=== PATIENT | male | born 1945 | race Caucasian/White ===

== ENCOUNTER 2017-04-22 09:20 | Outpatient (CLI) | payer MEDICARE ==
[2017-04-22 10:44] LABS: #Eosinphils 0.1 thou/uL (0.0-0.7); #Lymphocytes 1.8 thou/uL (1.20-3.40); #Monocytes 0.4 thou/uL (0.11-0.59); #Neutrophils 3.2 thou/uL (1.40-6.50); %Basophils 0.9 % (0.0-1.0); %Eosinophils 1.4 % (0.0-10.0); %Lymphocytes 33.1 % (21.0-51.0); %Monocytes 7.6 % (0.0-10.0); Hemoglobin 13.4 g/dL (14.0-18.0); Mean Corpuscular HGB CONC 34.3 g/dL (32.0-36.0); Mean Corpuscular Hemoglobin 30.4 pg (27.0-31.0); Mean Corpuscular Volume 88.6 fl (80.0-94.0); Mean Platelet Volume 5.9 fL (7.4-10.4); Platelet Count 321 thou/uL (130-400); RBC Distribution Width 11.9 % (11.5-14.5); Red Blood Cell (RBC) Count 4.39 mill/uL (4.70-6.10); White Blood Cell (WBC) Count 5.5 thou/uL (4.8-10.8)
[2017-04-22 11:03] LABS: Anion Gap 9 mmol/L (10-20); BUN (Urea Nitrogen) 15 mg/dL (8.4-25.7); Calc. Creatinine Clearance 0 mL/min (70-130); Carbon Dioxide 28 mmol/L (23-31); Chloride 107 mmol/L (98-107); Estimated GFR-MDRD 78; Glucose 98 mg/dL (80-115); Potassium 4.4 mmol/L (3.5-5.1); Sodium 140 mmol/L (136-145)
--- NOTE | 2017-04-22 19:05 | EKG ---
Test Reason : Blood Pressure : / mmHG Vent. Rate : 050 BPM Atrial Rate : 050 BPM P-R Int : 132 ms QRS Dur : 092 ms QT Int : 478 ms P-R-T Axes : 033 060 033 degrees QTc Int : 435 ms Sinus bradycardia Minimal voltage criteria for LVH, may be normal variant Borderline ECG When compared with ECG of 10-JAN-2010 17:33, No significant change was found Confirmed by DR. Cecil ELLER ([id number]) on 04/22/2017 7:05:23 PM Referred By: MICHAEL Confirmed By:DR. Cecil ELLER
== END 2017-04-22 09:21 | disposition home or self-care (01) ==
LOC: LABBT 09:20
PROVIDERS: ATTEND Surgery
DX: Z01.818 Encounter for other preprocedural examination (principal); K40.20 Bilateral inguinal hernia, without obstruction or gangrene, not specified as recurrent
CPT/HCPCS: 80048; 85025; 93005; 93010

== ENCOUNTER 2017-04-27 11:38 | Day surgery (SDC) | payer MEDICARE ==
[2017-04-27] MEDS ORDERED: CEFAZOLIN/Water 2 GM/20 ML SYRINGE ONE (12:44)
[2017-04-27] MEDS ORDERED: Bupivacaine/Epinephrine 0.25% 30 ML VIAL ONE (15:39)
[2017-04-27] MEDS ORDERED: HYDROmorphone 0.5 MG/0.5 ML SYRINGE ONE (15:40)
[2017-04-27] MEDS ORDERED: Fentanyl 250 MCG/5 ML VIAL ONE (15:40)
[2017-04-27] MEDS ORDERED: Propofol 200 MG/20 ML VIAL ONE (17:17)
[2017-04-27] MEDS ORDERED: Ketorolac Tromethamine 30 MG/ML VIAL ONE (17:17)
[2017-04-27] MEDS ORDERED: Dexamethasone 20 MG/5 ML VIAL ONE (17:17)
[2017-04-27] MEDS ORDERED: Glycopyrrolate 0.2 MG/ML 5 ML SYRINGE ONE (17:17)
[2017-04-27] MEDS ORDERED: Ondansetron HCl/PF 4 MG/2 ML Vial ONE (17:17)
[2017-04-27] MEDS ORDERED: Lidocaine 1% PF 5 ML VIAL ONE (17:17)
[2017-04-27] MEDS ORDERED: Meperidine HCl/PF 25 MG/ML VIAL ONE (18:03)
--- NOTE | 2017-04-27 20:43 | OP ---
DATE OF PROCEDURE: 04/27/2017. PREOPERATIVE DIAGNOSIS: Bilateral inguinal hernia. POSTOPERATIVE DIAGNOSIS: Bilateral inguinal hernia. PROCEDURE: Bilateral inguinal hernia repair with mesh. SURGEON: Arun Núñez MD ANESTHESIA: General. ESTIMATED BLOOD LOSS: Minimal. COMPLICATIONS: None. SPECIMENS: None. FINDINGS: Bilateral inguinal hernia. TECHNIQUE: The patient was taken to the operating room, placed supine on the table. After general a nesthetic was obtained, the Oneill was placed. The abdomen was shaved, prepped, and draped in a steri le fashion. Curved incision was made above the umbilicus. Cautery was used to dissect down to and s core the fascia. Abdominal cavity was entered bluntly using a Stephany clamp followed by a 12-mm trocar . High-flow pneumoperitoneum was obtained. The patient was placed in Trendelenburg position. Right and left abdominal 8-mm robot ports were placed. All ports were docked to the robot. Surgeon goes to the console. The peritoneum was taken down in the bilateral groin and the preperitoneal space fu lly dissected to the pubic tubercle medially, to the anterior iliac crest laterally. Iliopectineal l ine was fully exposed. The bilateral indirect inguinal hernias were dissected out of the indirect de fect and high up onto the peritoneum. There were no direct defects. On the left, the ProGrip mesh w as brought in and its medial labeled aspect was placed over the pubic tubercle. The mesh was unfolde d to completely cover the direct, indirect, and femoral components. On the right side, a 3DMax large mesh was brought in and its end-labeled medial aspect was placed over the pubic tubercle. The mesh laid out to cover the direct, indirect, and the femoral areas. On the right side, the mesh was sewn to the pubic tubercle medially and to the posterior fascia laterally using 2-0 Vicryl. The bilateral peritoneum was reapproximated using running Stratafix suture. All port sites were infiltrated using local anesthetic. All ports were removed under camera visualization. Pneumoperitoneum was let down . PDS was used to close the fascial defect above the umbilicus. All incisions were irrigated and cl osed using 4-0 Monocryl and Dermabond. The patient was en route to recovery in stable condition. Al l sponge counts, needle counts, lap counts were correct.
== END 2017-04-27 19:15 | disposition home or self-care (01) ==
LOC: SDC 11:38
PROVIDERS: ATTEND Surgery
PROC: 0YUA4JZ Supplement Bilateral Inguinal Region with Synthetic Substitute, Percutaneous Endoscopic Approach (ICD-10-PCS; principal; 2017-04-27)
DX: K40.20 Bilateral inguinal hernia, without obstruction or gangrene, not specified as recurrent (principal); I10 Essential (primary) hypertension; Z79.82 Long term (current) use of aspirin; Z79.899 Other long term (current) drug therapy; Z88.5 Allergy status to narcotic agent; Z98.890 Other specified postprocedural states; Z87.891 Personal history of nicotine dependence
CPT/HCPCS: C1781; J1100; J1170; J1885; J2001; J2175; J2405; J2704; J3010

== ENCOUNTER 2017-09-11 12:21 | Outpatient (CLI) | payer MEDICARE ==
--- NOTE | 2017-09-11 14:00 | RAD ---
LEFT FOOT 3 VIEWS: Date: 09/11/17 HISTORY: M79.672, burning sensation. COMPARISON: None. FINDINGS: No fracture. No malalignment. Low grade atherosclerotic plaque. No acute soft tissue abnormality. IMPRESSION: No acute abnormality. POS: MAGDALENA
--- NOTE | 2017-09-11 14:02 | RAD ---
LEFT ANKLE 3 VIEWS: Date: 09/11/17 HISTORY: M25.472, pain. COMPARISON: None. FINDINGS: No acute fracture or malalignment. Moderate vascular calcifications. There is some periosteal ossification of the posterior malleolus. IMPRESSION: No acute fracture or malalignment. POS: MAGDALENA
== END 2017-09-11 12:22 | disposition home or self-care (01) ==
LOC: SCSRAD 12:21
PROVIDERS: ATTEND Family Medicine
DX: M79.89 Other specified soft tissue disorders (principal); M79.672 Pain in left foot

== ENCOUNTER 2017-10-20 10:22 | Outpatient (CLI) | payer MEDICARE | END 2017-10-20 10:23 | disposition home or self-care (01) | LOC: BICMRI 10:22 | PROVIDERS: ATTEND Specialist | DX: H91.8X1 Other specified hearing loss, right ear (principal); G93.89 Other specified disorders of brain | CPT/HCPCS: 70553; 82565 ==

== ENCOUNTER 2018-09-15 11:06 | Day surgery (SDC) | payer MEDICARE ==
--- NOTE | 2018-09-14 10:38 | HP ---
HISTORY OF PRESENT ILLNESS: This is a 72-year-old male, who comes for a colonoscopy for colon cancer screening. The patient has no specific GI symptoms. His bowel movements are regular. No history of hematochezia. ALLERGIES: NONE. MEDICAL ILLNESS: 1. Hypertension. 2. . 3. Prostatic hypertrophy. 4. Bilateral inguinal hernia repair in 2018. PHYSICAL EXAMINATION: VITAL SIGNS: Pulse is 70, blood pressure 130/80. HEENT: Conjunctivae are clear. CARDIOVASCULAR SYSTEM: First and second heart sounds are normal. LUNGS: Clear to auscultation. ABDOMEN: Soft. No organomegaly. No tenderness. No masses. ADMITTING DIAGNOSIS: This is a 72-year-old male, who comes for a colonoscopy for colon cancer screening. Job ID: [id number]
[2018-09-14 12:45] VITALS: BMI 24.0
--- NOTE | 2018-09-15 21:17 | OP ---
DATE OF PROCEDURE: 09/15/2018 OPERATIVE PROCEDURE: Colonoscopy. PREOPERATIVE DIAGNOSIS: A 72-year-old male, undergoing colonoscopy for colon cancer. POSTOPERATIVE DIAGNOSES: 1. Large hemorrhoids. 2. Sigmoid diverticulosis. The exam was very difficult due to the fact that he had a very redundant, tortuous colon. With abdominal compression, it was very difficult to advance scope all the way into the cecum. The scope was withdrawn several times back and forth and finally was able to advance in to the right colon_. DESCRIPTION OF PROCEDURE: The patient was placed on his left lateral position and was given sedation by Anesthesia Department. The rectal exam was done before the scope was advanced into the rectum. No lesions felt on rectal exam. A Pentax video colonoscope was introduced into the rectum and advanced all the way to the cecum. The patient had pockets of dark greenish to brown liquid stool. This was washed out. The exam was somewhat very difficult because the colon was very redundant. and tortuous. It was somewhat difficult to advance the scope. The scope was withdrawn back in several times back and forth and tried to keep the scope straight. The mucosa appears normal throughout the colon with normal vascular pattern. In the upper opening ileocecal wall and cecum, no pathology seen. Withdrawal of scope from the cecum, ascending colon, and hepatic flexure, no pathology seen. In the transverse colon, splenic flexure, descending colon, and sigmoid colon, no pathology seen. The sigmoid colon shows mild scattered diverticula. The rectum showed large hemorrhoids. DISCHARGE PLANNING: This is a 72-year-old male, came for colonoscopy for colon cancer screening. The colonoscopy showed sigmoid diverticula and large hemorrhoids. DISCHARGE RECOMMENDATIONS: 1. The patient advised to call me if he develops abdominal pain, hematochezia, or fever. 2. In the absence of any other symptoms, he will come back to me in 2 weeks. Job ID: [id number] [facility]
== END 2018-09-15 15:20 | disposition home or self-care (01) ==
LOC: SDC 11:06
PROVIDERS: ATTEND Internal Medicine Gastroenterology
PROC: 0DJD8ZZ Inspection of Lower Intestinal Tract, Via Natural or Artificial Opening Endoscopic (ICD-10-PCS; principal; 2018-09-15)
DX: Z12.11 Encounter for screening for malignant neoplasm of colon (principal); K57.30 Diverticulosis of large intestine without perforation or abscess without bleeding; K64.9 Unspecified hemorrhoids; I10 Essential (primary) hypertension; Z79.82 Long term (current) use of aspirin; Z79.899 Other long term (current) drug therapy